=== PATIENT | female | born 1985 | race Two or more races ===

== ENCOUNTER → 2017-08-16 | Outpatient (CLI) | payer OTHER | END | disposition home or self-care (01) | LOC: PPH VACUNA 12:15 | DX: Z23 Encounter for immunization (principal) ==

== ENCOUNTER 2017-10-24 10:04 | Outpatient (CLI) | payer OTHER | END 2017-10-24 10:24 | disposition home or self-care (01) | LOC: LAB 10:04 | DX: Z11.6 Encounter for screening for other protozoal diseases and helminthiases (principal); E78.5 Hyperlipidemia, unspecified; Z00.00 Encounter for general adult medical examination without abnormal findings ==

== ENCOUNTER 2018-01-24 14:23 | Outpatient (CLI) | payer OTHER | END 2018-01-24 14:38 | disposition home or self-care (01) | LOC: SONOGRAMA 14:23 | DX: N63.10 Unspecified lump in the right breast, unspecified quadrant (principal); N63.20 Unspecified lump in the left breast, unspecified quadrant; N60.11 Diffuse cystic mastopathy of right breast; N60.12 Diffuse cystic mastopathy of left breast ==

== ENCOUNTER 2018-04-16 11:55 | Outpatient (CLI) | payer OTHER | END 2018-04-16 12:02 | disposition home or self-care (01) | LOC: SONOGRAMA 11:55 | DX: R19.00 Intra-abdominal and pelvic swelling, mass and lump, unspecified site (principal) ==

== ENCOUNTER 2018-11-14 14:50 | Outpatient (CLI) | payer OTHER | END 2018-11-14 15:00 | disposition home or self-care (01) | LOC: RAD 14:50 | DX: M43.16 Spondylolisthesis, lumbar region (principal) ==

== ENCOUNTER 2018-11-19 10:59 | Outpatient (CLI) | payer OTHER | END 2018-11-19 11:00 | disposition home or self-care (01) | LOC: SONOGRAMA 10:59 | DX: R10.2 Pelvic and perineal pain (principal); R19.00 Intra-abdominal and pelvic swelling, mass and lump, unspecified site ==

== ENCOUNTER 2019-08-16 13:39 | Outpatient (CLI) | payer OTHER | END 2019-08-16 13:45 | disposition home or self-care (01) | LOC: SONOGRAMA 13:39 | DX: R10.2 Pelvic and perineal pain (principal); D25.9 Leiomyoma of uterus, unspecified ==

== ENCOUNTER 2020-04-24 11:41 | Outpatient (CLI) | payer OTHER | END 2020-04-24 11:47 | disposition home or self-care (01) | LOC: RAD 11:41 | PROVIDERS: ATTEND General Practice | DX: S90.931A Unspecified superficial injury of right great toe, initial encounter (principal) ==

== ENCOUNTER 2020-07-08 10:53 | Outpatient (CLI) | payer OTHER | END 2020-07-08 11:11 | disposition home or self-care (01) | LOC: SONOGRAMA 10:53 | PROVIDERS: ATTEND General Practice | DX: R10.11 Right upper quadrant pain (principal) ==

== ENCOUNTER → 2020-11-10 | Outpatient (CLI) | payer OTHER | END | disposition home or self-care (01) | LOC: SONOGRAMA 11:28 | PROVIDERS: ATTEND Specialist | DX: D25.9 Leiomyoma of uterus, unspecified (principal) ==

== ENCOUNTER 2021-03-10 12:43 | Outpatient (CLI) | payer OTHER | END 2021-03-10 13:03 | disposition home or self-care (01) | LOC: RAD 12:43 | PROVIDERS: ATTEND General Practice | DX: M54.2 Cervicalgia (principal); S16.1XXA Strain of muscle, fascia and tendon at neck level, initial encounter; S29.012A Strain of muscle and tendon of back wall of thorax, initial encounter ==

== ENCOUNTER 2022-04-13 11:45 | Inpatient (IN) | payer OTHER ==
[~2022-04-13] VITALS: Ht 175.3 cm; Wt 64.0 kg
[2022-04-18] MEDS ORDERED: AMPHETAMINE SAL20 MG (09:39)
== END 2022-04-19 12:11 | disposition home or self-care (01) | DRG 743 ==
LOC: O/R 04-18 05:59 → OB/GYN 04-18 05:59 → SURG 04-18 09:00 → OB/GYN 04-18 09:46 → SURG 04-18 11:45 → OB/GYN 04-19 12:11
PROVIDERS: ADMIT Obstetrics & Gynecology Gynecology; ATTEND Obstetrics & Gynecology Gynecology
PROC: 0UB90ZZ Excision of Uterus, Open Approach (ICD-10-PCS; principal; 2022-04-18 09:00)
DX: D25.2 Subserosal leiomyoma of uterus (principal); Z20.822 Contact with and (suspected) exposure to COVID-19

== ENCOUNTER 2024-06-18 10:08 | Outpatient (CLI) | payer OTHER ==
[~2024-06-18 10:08] MED LIST: AMPHETAMINE SAL20 MG
== END 2024-06-18 12:01 | disposition home or self-care (01) ==
LOC: NST 10:08
PROVIDERS: ATTEND Obstetrics & Gynecology Gynecology
DX: Z34.83 Encounter for supervision of other normal pregnancy, third trimester (principal)

== ENCOUNTER 2024-07-24 15:16 | Inpatient (IN) | payer OTHER ==
[2024-07-23 16:57] LABS: HEMATOCRIT 37.9 % (36.0-45.00); HEMOGLOBIN 13.1 g/dL (12.0-15.00); MEAN CELL VOLUME 95.3 fL (80.00-100.00); MEAN CORPUSCULAR HEMOGLOBIN 32.9 pg (27.00-32.0); MEAN CORPUSCULAR HGB CONC 34.5 g/dl (32.0-36.0); PLATELET COUNT 205 K/uL (150-450); RED BLOOD COUNT 3.97 M/uL (4.00-6.00)
[2024-07-23 17:00] LABS: PH,URINE 7.5 (5.0-8.0); URINE APPEARANCE Clear; URINE BILIRRUBIN Negative (NEGATIVE); URINE BLOOD Negative; URINE COLOR Yellow; URINE GLUCOSE Negative (NEGATIVE); URINE KETONE Negative (NEGATIVE); URINE LEUKOCYTE Negative; URINE NITRATE Negative; URINE PROTEIN Negative (NEGATIVE); URINE UROBILINOGEN 0.2 E.U./dl
[2024-07-23 17:01] LABS: URINE BACTERIA 23.2 uL (0.0-1933); URINE EPITHELIAL CELLS 5.2 uL (0.0-38.8); URINE WBC 2.3 uL (0.0-23.2)
[2024-07-23 17:07] LABS: URINE RBC 1.1 uL (0.0-20.8)
[2024-07-23 17:11] LABS: INR 0.94; PARTIAL THROMBOPLASTIN TIME 29.9 SECONDS (22.0-34.0); PROTHROMBIN TIME 10.3 SECONDS (9.0-11.5)
[2024-07-23 17:26] LABS: ALBUMIN 2.6 gm/dL (3.4-5.0); BILIRUBIN TOTAL 0.85 mg/dL (0.3-1.2); CALCIUM 8.8 mg/dL (8.5-10.1); CREATININE SERUM 0.49 mg/dL (0.55-1.02); GFR 141.34; GLOBULINA 3.3 G/DL (2.4-3.5); POTASSIUM 4.3 mEq/L (3.5-5.1); TOTAL PROTEIN 5.9 gm/dL (6.4-8.2)
[~2024-07-24] VITALS: Ht 175.3 cm; Wt 3.2 kg
[~2024-07-24 15:16] MED LIST changes: +PRENATAL + DHA1 EAC1 PO
[2024-08-02 11:07] VITALS: BP 106/73
[2024-08-02] MEDS ORDERED: CITRIC ACID/SODIUM CITRATE 30 ML BLIST.PACK PO ONE (14:01)
[2024-08-02] MEDS ORDERED: ERYTHROMYCIN BASE OPHT 1GM EACH TUBE OP ONE (16:02)
[2024-08-02] MEDS ORDERED: OXYTOCIN 10 UNITS/ML VIAL ONE ×2 (16:02→18:18)
[2024-08-02] MEDS ORDERED: GABAPENTIN 300 MG CAPSULE PO SCH (17:35)
[2024-08-02] MEDS ORDERED: OXYTOCIN 1,000 ML IV SCH (17:45)
[2024-08-02] MEDS ORDERED: MEPERIDINE HCL 50 MG/ML AMPUL IM ONE (19:00)
[2024-08-02 20:11] VITALS: BP 134/82
[2024-08-02] MEDS ORDERED: CEFAZOLIN SODIUM 1,000 MG VIAL IV ONE (21:15)
[2024-08-03 00:27] VITALS: BP 112/73
[2024-08-03 08:25] VITALS: BP 101/66
[2024-08-03] MEDS ORDERED: IBUprofen 400 MG TABLET PO SCH (09:00)
[2024-08-03] MEDS ORDERED: OxyCODONE HCL/APAP UD (PERCOCET) PO SCH (09:34)
[2024-08-03 10:33] LABS: HEMATOCRIT 37.4 % (36.0-45.00); HEMOGLOBIN 12.9 g/dL (12.0-15.00); MEAN CELL VOLUME 96.6 fL (80.00-100.00); MEAN CORPUSCULAR HEMOGLOBIN 33.3 pg (27.00-32.0); MEAN CORPUSCULAR HGB CONC 34.5 g/dl (32.0-36.0); PLATELET COUNT 201 K/uL (150-450); RED BLOOD COUNT 3.88 M/uL (4.00-6.00); RED CELL DISTRIBUTION WIDTH 13.2 % (11.5-14.5)
[2024-08-03] MEDS ORDERED: KETOROLAC TROMETHAMINE 10 MG TABLET PO SCH (12:00)
[2024-08-03 13:08] VITALS: BP 128/83
[2024-08-03 17:27] VITALS: BP 117/79
[2024-08-03 23:58] VITALS: BP 109/71
[2024-08-04] MEDS ORDERED: OXYC1TAB9 PO (11:51)
[2024-08-04] MEDS ORDERED: KETO10TA2 PO (11:51)
== END 2024-08-04 13:15 | disposition home or self-care (01) | DRG 788 ==
LOC: OB/GYN 08-02 07:00 → O/R 08-02 10:55 → OB/GYN 08-02 14:56
PROVIDERS: Obstetrics & Gynecology Maternal & Fetal Medicine; ADMIT Obstetrics & Gynecology Gynecology; ATTEND Obstetrics & Gynecology Gynecology
PROC: 4A1HXCZ Monitoring of Products of Conception, Cardiac Rate, External Approach (ICD-10-PCS; 2024-08-02)
PROC: 10D00Z1 Extraction of Products of Conception, Low, Open Approach (ICD-10-PCS; principal; 2024-08-02 07:00)
DX: O34.29 Maternal care due to uterine scar from other previous surgery (principal); Z3A.38 38 weeks gestation of pregnancy; Z37.0 Single live birth